=== PATIENT | female | born 1950 | race Caucasian/White ===

== ENCOUNTER 2016-10-17 09:07 | Emergency (ER) | payer MEDICARE ==
[2016-10-17 09:46] LABS: BLOOD UREA NITROGEN 11 mg/dL (7-17); CALCIUM 9.6 mg/dL (8.4-10.2); CHLORIDE 105 mmol/L (98-107); EST GLOMERULAR FILTRATION RATE > 60 mL/min; GLUCOSE 128 mg/dL (70-100); MAGNESIUM 2.2 mg/dL (1.6-2.3); POTASSIUM 3.2 mmol/L (3.5-5.1); SODIUM 139 mmol/L (137-145)
[2016-10-17 09:50] LABS: BASOPHIL# 0.1 X 10^3uL (0.0-0.1); BASOPHILS 0.9 % (0.0-2.0); EOSINOPHILS 1.4 % (0.0-6.0); EOSINOPHILS# 0.1 X 10^3uL (0.0-0.4); HEMATOCRIT 44.9 % (36.0-48.0); HEMOGLOBIN 15.3 g/dL (12.0-16.0); LYMPHOCYTES# 1.3 X 10^3uL (0.8-3.8); MEAN CELL VOLUME 87.8 fL (80.0-100.0); MEAN CORPUS. HGB CONCENTRATION 34.1 g/dL (32.0-36.0); MEAN PLATELET VOLUME 8.9 fL (7.4-10.4); MONOCYTES 6.6 % (2.0-10.0); MONOCYTES# 0.4 X 10^3uL (0.2-1.0); NEUTROPHILS 68.1 % (54.0-75.0); NEUTROPHILS# 3.7 X 10^3uL (2.6-6.7); PLATELET COUNT 339 X 10^3uL (130-440); RED BLOOD COUNT 5.12 X 10^6uL (4.20-6.10); WHITE BLOOD COUNT 5.6 X 10^3uL (3.9-10.7)
[2016-10-17 09:59] LABS: TROPONIN I < 0.012 ng/mL (0.00-0.034)
--- NOTE | 2016-10-17 13:34 | RADIOLOGY REPORT ---
A limited single portable view of the chest demonstrates the heart and vessels to be unremarkable. Lung mcgregor are clear. No infiltrate, fluid or pneumothorax is seen. IMPRESSION: Unremarkable limited single portable view of the chest. MTDD
--- NOTE | 2016-10-17 14:31 | ER NURSING DOCUMENTATION ---
Nurse's Notes [facility] Name:Patsy Del Cid Age:66 yrs Sex:Female :1950 Arrival Date:10/17/2016 Time:09:07 BedTrauma-B Private MD: Diagnosis:Chest Pain, Other Presentation: 10/17 09:15 Presenting complaint: Patient states: gradual onset chest pain at 0730, episode last nf about 60 minutes and symptoms resolved BUSINESS SERVICES TECH in ER, pain described as sharp pain radiating across entire chest and down both arms, pain was severe enough that is was hard to catch her breath, no nausea/vomiting or diaphoresis. Transition of care: patient was not received from another setting of care. AIR CAT ACTIVATION no. Asprin Given n/a. Risk considerations: negative evaluation for symptoms or risks of deep vein thrombosis or pulmonary embolism. Notified ED Physician of patient's arrival and CC Tushar Mosqueda notified. 09:15 Acuity: ESTUARDO 2 nf 09:15 Method Of Arrival: Walk In nf Triage Assessment: 09:20 General: Appears well nourished, well groomed, Behavior is pleasant. Pain: Denies pain. nf Neuro: No deficits noted. Cardiovascular: Capillary refill < 3 seconds Rhythm is sinus rhythm. Respiratory: Respiratory effort is even, unlabored, Respiratory pattern is regular, Denies shortness of breath labored breathing, pain with movement, air hunger. GI: No deficits noted. Denies indigestion, nausea, vomiting. Historical: - Allergies: PENICILLINS; - Home Meds: 1. unknown cholesterol medication - PMHx: HIGH CHOLESTEROL; - PSHx: None; - Tetanus: Other NA today. - Ebola Screening: : No symptoms or risks identified at this time. . - Immunization history: Pneumococcal vaccine is up to date, Flu Vaccine < 1 year. - Social history: Smoking status: Patient states was never smoker of tobacco. Patient uses alcohol but reports only rare drinking. Patient/guardian denies using street drugs. Screenin:26 Infectious Disease Risk None. Abuse screen: Denies threats or abuse. Nutritional nf screening: No deficits noted. Assessment: 09:24 See Triage Assessment done by same RN. Pain: resolved now; had radiated down both arms nf and caused arms to be numbed and loose their color Pain began @0730, lasted about 60 minutes and resolved spontanseously. Cardiovascular: Reports fatigue, lightheadedness, resolved BUSINESS SERVICES TECH. Respiratory: Breath sounds are clear bilaterally. 10:27 Reassessment: Patient denies pain at this time. Patient states feeling better. Patient nf states symptoms have improved. HTN continues; patient denies needs; Mauricio making arrangements for patient to have a stress test from the ER in the [facility]. 10:56 Reassessment: re-evaluation by Mauricio. nf 11:38 Reassessment: repeat troponin drawn; patient resting quietly and denies needs. nf 12:02 Reassessment: stress test planned for 1300 per [facility]iology [facility]; repeat troponin nf pending. 13:47 Reassessment: return from stress test; denies needs. nf Vital Signs: 09:21 BP 177 / 110; Pulse 76; Resp 18; Temp 97.9(O); Pulse Ox 95% on R/A; Weight 63.5 kg; nf Height 5 ft. 3 in. (160.02 cm); Pain 0/10; 10:20 BP 172 / 104; Pulse 77; Resp 12; Pulse Ox 98% on R/A; Pain 0/10; nf 11:20 BP 131 / 88; Pulse 76; Pain 0/10; nf 12:30 BP 131 / 87; Pulse 72; Pulse Ox 95% on R/A; Pain 0/10; nf 13:50 BP 134 / 87; Pulse 82; Pulse Ox 95% on R/A; Pain 0/10; nf 14:23 BP 138 / 89; Pulse 80; Resp 14; Pulse Ox 97% on R/A; tg 09:21 Body Mass Index 24.80 (63.50 kg, 160.02 cm) nf ED Course: 09:08 Patient arrived in ED. dp 09:11 EKG done. (by ED staff). Reviewed by Noé Finley MD. nf 09:15 Lena Starkey, RN is Primary Nurse. nf 09:18 Triage completed. nf 09:24 Noé Finley MD is Attending Physician. jm 09:24 Arm band placed on Bed in low position Call Light in Reach Gowned HOB Elevated Side nf rails up x2. 09:25 Inserted peripheral IV: 20 gauge in right antecubital area and blood collected. tg 09:26 Valuables Remains with patient. privacy manager on. Pulse Ox - RN Monitoring Only NIBP nf On - RN Monitoring Only. Door closed. Noise minimized. Lights dimmed. Moved to private room. Verbal reassurance given. Warm blanket given. Pillow given. Diet: Patient is NPO. 09:36 Port Xray Completed. veronica 10:32 EKG attached nf 11:35 Labs drawn. (by ED staff). Sent per order to lab. nf 12:02 Assisted to bathroom. nf 14:16 Brandie Fair DO is Referral Physician. zeus Administered Medications: 09:46 Drug: Aspirin Chewable Tablet 324 mg; Route: PO; nf Outcome: 14:16 Discharge ordered by MD. zeus 14:23 Discharged to home ambulatory, with friend. tg 14:23 Condition: stable 14:23 Discharge Assessment: Patient awake, alert and oriented x 3. No cognitive and/or functional deficits noted. Patient verbalized understanding of disposition instructions. 14:23 Instructed on discharge instructions, follow up and referral plans. 14:23 IV D/Timo 14:30 Patient left the ED. nf 10/18 10:24 Discharge F/U Call: Unable to reach: left voicemail: sc1 10:50 Discharge F/U Call: Spoke with: patient. Did your discharge instructions answer all sc1 of your questions? yes Have you made a f/u appointment? yes Overall Care on a scale of 1-10 with 10 being the best care, you rate our care as: the rating of 10. Signatures: Olivier Mtz RN RN Kala Levi RN RN la1 Lena Starkey RN RN nf Meyer, John, MD MD jm Abbott, Laura lea Palacios, Denise dp
--- NOTE | 2016-10-17 14:31 | ER PHYSICIAN DOCUMENTATION ---
Physician Documentation [facility] Name:Patsy Del Cid Age:66 yrs Sex:Female :1950 Arrival Date:10/17/2016 Time:09:07 BedTrauma-B Private MD: Noé Eason Disposition: 10/17/16 14:16 Discharged to Home/Self Care. Impression: Chest Pain, Other. - Condition is Good. - Discharge Instructions: Chest Pain - CHEST PAIN, Uncertain Cause. - Medical Reconciliation form form. - Follow up: Brandie Fair DO; When: 1 week; Reason: Continuance of care. - Problem is new. - Symptoms have improved. HPI: 10/17 10:03 This 66 yrs old Female presents to ER via Walk In with complaints of Chest jm Pain. 10:03 The patient or guardian reports chest pain that is located primarily in the substernal jm area. Onset: 2 hour(s) ago. The pain radiates to both arms. There has been no movement of pain. Associated signs and symptoms: Pertinent negatives: shortness of breath. The chest pain is described as a heaviness. Duration: The patient or guardian reports a single episode, that lasted 1 hour(s). Modifying factors: the symptoms are aggravated by nothing. Severity of pain: in the emergency department the pain has resolved and did so just prior to arrival. This patient does not have any risk factors related to chest pain. The patient has not experienced similar symptoms in the past. Historical: - Allergies: PENICILLINS; - Home Meds: 1. unknown cholesterol medication - PMHx: HIGH CHOLESTEROL; - PSHx: None; - Tetanus: Other NA today. - Ebola Screening: : No symptoms or risks identified at this time. . - Immunization history: Pneumococcal vaccine is up to date, Flu Vaccine < 1 year. - Social history: Smoking status: Patient states was never smoker of tobacco. Patient uses alcohol but reports only rare drinking. Patient/guardian denies using street drugs. ROS: 11:02 Constitutional: Negative for fatigue, fever. jm 11:02 Cardiovascular: Positive for chest pain. 11:02 Respiratory: Negative for cough, shortness of breath. 11:02 Abdomen/GI: Negative for abdominal pain, nausea, vomiting, diarrhea. 11:02 Neuro: Negative for dizziness, numbness. 11:02 All other systems are negative. Exam: 11:04 Constitutional: The patient appears alert, awake, comfortable. jm 11:04 Eyes: Periorbital structures: appear normal, Conjunctiva: normal. 11:04 ENT: Mouth: is normal, Voice: is normal. 11:04 Cardiovascular: Rate: normal, Rhythm: regular. 11:04 Respiratory: Respirations: normal, Breath sounds: are normal. 11:04 Abdomen/GI: Inspection: abdomen appears normal, Palpation: abdomen is soft and non-tender. 11:04 Musculoskeletal/extremity: DVT Exam: No signs of deep vein thrombosis. Calves: are non-tender, have equal circumference. 11:04 Skin: Appearance: Color: pink, no rash present. 11:04 Neuro: Mentation: is normal, Memory: is normal. 11:04 Psych: Behavior/mood is pleasant, cooperative, Affect is calm. Vital Signs: 09:21 BP 177 / 110; Pulse 76; Resp 18; Temp 97.9(O); Pulse Ox 95% on R/A; Weight 63.5 kg; nf Height 5 ft. 3 in. (160.02 cm); Pain 0/10; 10:20 BP 172 / 104; Pulse 77; Resp 12; Pulse Ox 98% on R/A; Pain 0/10; nf 11:20 BP 131 / 88; Pulse 76; Pain 0/10; nf 12:30 BP 131 / 87; Pulse 72; Pulse Ox 95% on R/A; Pain 0/10; nf 13:50 BP 134 / 87; Pulse 82; Pulse Ox 95% on R/A; Pain 0/10; nf 14:23 BP 138 / 89; Pulse 80; Resp 14; Pulse Ox 97% on R/A; tg 09:21 Body Mass Index 24.80 (63.50 kg, 160.02 cm) nf MDM: 09:24 Patient medically screened. jm 10:32 EKG attached nf 11:04 Differential diagnosis: acute myocardial infarction, anxiety, stable angina, unstable jm angina. Patient took aspirin. Data reviewed: vital signs, nurses notes, old medical records, lab test result(s), EKG, radiologic studies. 16:54 Data reviewed: and as a result, I will continue to observe the patient. Test jm interpretation: by ED physician or midlevel provider: plain radiologic studies. Counseling: I had a detailed discussion with the patient and/or guardian regarding: the historical points, exam findings, and any diagnostic results supporting the discharge/admit diagnosis, lab results, radiology results, the need for outpatient follow up, with the patient's primary care provider. ECG:. ED course: Pt w exertional CP. Pt had 2 negative trops, then was stressed which was normal. Pt DC'd home. . 10/17 09:54 Order name: CBC AUTO DIF, MDIF/RMOR IF IND; Complete Time: 10:12 [facility] 10/17 10:00 Order name: BASIC METABOLIC PANEL; Complete Time: : [facility] 10/17 10:00 Order name: MAGNESIUM; Complete Time: : [facility] 10/17 10:00 Order name: TROPONIN I; Complete Time: : [facility] 10/17 12:07 Order name: TROPONIN I; Complete Time: : [facility] 10/17 17:25 Order name: CHEST; SINGLE [place]IEW [id number] [facility] 10/17 09:27 Order name: 12-lead EKG; Complete Time: 10/17 09:27 Order name: Iv Saline Lock; Complete Time: 10/17 09:27 Order name: Place Patient On Monitor; Complete Time: 10/17 09:27 Order name: Pulse Ox Continuous; Complete Time: EC:54 Rhythm is regular. QRS [place] is Normal. QRS interval is normal. QT interval is normal. jm No Q waves. T waves are Normal. No ST changes noted. Dispensed Medications: 09:46 Drug: Aspirin Chewable Tablet 324 mg; Route: PO; nf Signatures: Lena Starkey RN RN Noé Cochran MD MD jm
== END 2016-10-17 14:31 | disposition home or self-care (01) ==
LOC: ER 09:07
DX: R07.89 Other chest pain (principal); M79.601 Pain in right arm; M79.602 Pain in left arm; I49.3 Ventricular premature depolarization; E78.00 Pure hypercholesterolemia, unspecified; Z79.899 Other long term (current) drug therapy
CPT/HCPCS: 71010; 80048; 83735; 84484; 85025; 93005; 93351; 99284